=== PATIENT | female | born 1970 | race Caucasian/White ===

== ENCOUNTER 2018-01-01 21:41 | Observation (INO) | payer OTHER ==
[~2018-01-01] VITALS: Ht 172.7 cm; Wt 89.4 kg
[~2018-01-01 21:41] MED LIST: KEFLEX500 MG PO; NAPROSYN500 MG PO; NOHOMEMEDS; PROMETHAZINE HC25 M1 PO; TYLENOL WITH C1 EACH PO; ULTRAM50 MG PO
[2018-01-01 22:22] LABS: HEMOGLOBIN 11.6 G/DL (11.9-15.5); MCH 24.7 PG (29.0-34.0); MCHC 31.4 G/DL (30.0-36.0); MCV 78.9 FL (83-99); PLATELET COUNT 302 K/uL (156-360); RBC DIS.WIDTH-CV 14.4 % (11.8-14.6); RBC DIS.WIDTH-SD 40.7 % (39-53); RED BLOOD COUNT 4.69 M/uL (3.80-5.20); WHITE BLOOD COUNT 10.6 K/uL (4.1-10.2)
[2018-01-01 22:33] LABS: CHLORIDE 108 mEq/L (99-109); POTASSIUM 4.1 mEq/L (3.7-5.4); SODIUM 142 mEq/L (136-147)
[2018-01-01 22:35] LABS: GLUCOSE 111 mg/dL (70-99)
[2018-01-01 22:39] LABS: GFR ESTIMATE (CALCULATED) > 59 mL/min/
[2018-01-01 22:40] LABS: UREA NITROGEN (BUN) 14 mg/dL (9-23)
[2018-01-01 22:45] LABS: TROP-I INTERPRETATION NEGATIVE; TROPONIN-I < 0.01 ng/mL (0.0-0.30)
[2018-01-02 02:02] LABS: CREATINE KINASE 33 IU/L (1-294)
[2018-01-02 02:03] LABS: TROP-I INTERPRETATION NEGATIVE; TROPONIN-I < 0.01 ng/mL (0.0-0.30)
[2018-01-02 04:25] LABS: ALBUMIN 3.6 G/DL (3.2-4.8); ALKALINE PHOSPHATASE 68 IU/L (3-129); ALT (GPT) 7 IU/L (3-49); AST (GOT) 11 IU/L (2-34); DIRECT BILIRUBIN 0.2 mg/dL (0.0-0.3); LIPASE 22 U/L (1.0-51.0); TOTAL BILIRUBIN 0.2 MG/DL (0.0-1.0)
[2018-01-02 04:49] VITALS: BP 120/78
[2018-01-02 08:03] VITALS: BP 111/73
[2018-01-02 08:22] LABS: TROP-I INTERPRETATION NEGATIVE; TROPONIN-I < 0.01 ng/mL (0.0-0.30)
[2018-01-02] MEDS ORDERED: ADVIL,NUPRIN,M200 MG PO (11:48)
[2018-01-02] MEDS ORDERED: LOPRESSOR25 MG PO (12:14)
[2018-01-02] MEDS ORDERED: ASPIR-LOW81 MG PO (12:14)
[2018-01-02 12:34] VITALS: BP 119/71
[2018-01-02 15:01] LABS: TROP-I INTERPRETATION NEGATIVE; TROPONIN-I < 0.01 ng/mL (0.0-0.30)
== END 2018-01-02 15:25 | disposition home or self-care (01) ==
LOC: EME 21:41 → EDOF 01-02 03:31 → ENRESERV 01-02 03:32 → 4SOUTH 01-02 04:27
PROVIDERS: Emergency Medicine; Hospitalist
DX: R07.9 Chest pain, unspecified (principal); R06.02 Shortness of breath; I25.84 Coronary atherosclerosis due to calcified coronary lesion; R03.0 Elevated blood-pressure reading, without diagnosis of hypertension; F32.9 Major depressive disorder, single episode, unspecified; G80.9 Cerebral palsy, unspecified; M17.11 Unilateral primary osteoarthritis, right knee; E66.9 Obesity, unspecified; F17.210 Nicotine dependence, cigarettes, uncomplicated; Z80.0 Family history of malignant neoplasm of digestive organs; Z82.5 Family history of asthma and other chronic lower respiratory diseases; D64.9 Anemia, unspecified
CPT/HCPCS: 71046; 71275; 80048; 80076; 82550; 83690; 84484; 85027; 85379; 93005; 99281; 99285; G0378; J1650; J7030